=== PATIENT | male | born 2005 | race Caucasian/White ===

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

== ENCOUNTER 2024-10-31 09:53 | Outpatient (CLI) | payer BC, SELFPAY | END 2024-10-31 09:54 | disposition home or self-care (01) | LOC: NFLDREF 11-01 15:58 | PROVIDERS: PCP Family Medicine; Referring Provider Family Medicine; Visit Provider Family Medicine | DX: E78.5 Hyperlipidemia, unspecified (principal); A74.9 Chlamydial infection, unspecified; Z13.1 Encounter for screening for diabetes mellitus; Z13.6 Encounter for screening for cardiovascular disorders; Z11.3 Encounter for screening for infections with a predominantly sexual mode of transmission | CPT/HCPCS: 80061; 82947; 86703; 87491; 87591 ==